=== PATIENT | male | born 1965 | race Caucasian/White ===

== ENCOUNTER 2017-08-31 04:27 | Emergency (ER) | payer OTHER ==
[2017-08-31 04:38] VITALS: TEMP 97.7; BMI 34.4
[2017-08-31] MEDS ORDERED: ATIVAN PO STA (05:27)
--- NOTE | 2017-08-31 05:30 | ED.PDOC ---
General ED Provider: Dr. RPICILA MORFIN Chief Complaint: Behavioral Complaint Stated Complaint: patient states that he feels anxious since quiting smoking. He was recently discharged from [facility] inpatient psych 4 days ago. He also states that his mother and has been grieving her loss. He was recently diagnosed with diabetes and is also not sure if the new medication for diabetes is right. Time Seen by Physician: 05:28 Mode of Arrival: Ambulance Information Source: Patient Primary Care Provider: JUDY LOZANO Nursing and Triage Documentation Reviewed and Agree: Yes Does patient meet sepsis criteria?: No System Inflammatory Response Syndrome: Not Applicable Sepsis Protocol: For patient's 13 years and over: Temp is 96.8 and below OR 101 and greater Pulse >90 BPM Resp >20/minute Acutely Altered Mental Status Are patient's symptoms suggestive of a new infection, such as: -Pneumonia -Skin, Soft Tissue -Endocarditis -UTI -Bone, Joint Infection -Implantable Device -Acute Abdominal Infection -Wound Infection -Meningitis -Blood Stream Catheter Infection -Unknown Review of Systems - Review Of Systems Constitutional: Reports: No symptoms Eyes: Reports: No symptoms Ears, Nose, Mouth, Throat: Reports: No symptoms Respiratory: Reports: No symptoms Cardiac: Reports: No symptoms GI: Reports: No symptoms : Reports: No symptoms Neurological: Reports: Anxiety, Depressed, Emotional problems, Other (insomina ) All Other Systems: Reviewed and Negative Past Medical History - Past Medical History Endocrine: Reports: Dyslipidemia Cardiovascular: Reports: Hypertension Respiratory: Reports: None Hematological: Reports: None Gastrointestinal: Reports: GERD Genitourinary: Reports: None Neuro/Psych: Reports: Anxiety, Depression, Schizophrenia Musculoskeletal: Reports: None Cancer: Reports: None - Surgical History General Surgical History: Reports: Cholecystectomy, Orthopedic - Family History Family History: Reports: Unknown - Social History Smoking Status: Former smoker Hx Substance Use: Yes (ALCOHOL/STREET DRUGS IN PAST) Alcohol Screening: None - Immunizations Tetanus Shot up to Date: No Physical Exam - Physical Exam Appearance: Well-appearing, No pain distress, Well-nourished Eyes: ASAD, EOMI, Conjunctiva clear ENT: Ears normal, Nose normal, Oropharynx normal Respiratory: Airway patent, Breath sounds clear, Breath sounds equal, Respirations nonlabored Cardiovascular: RRR, Pulses normal, No rub, No murmur GI/: Soft, Nontender, No masses, Bowel sounds normal, No Organomegaly Musculoskeletal: Normal strength, ROM intact, No edema, No calf tenderness Skin: Warm, Dry, Normal color Neurological: Alert, Oriented Psychiatric: Anxious, Depressed Re-Evaluation - Re-Evaluation Time of Re-Evaluation: 06:00 Status: Improved (less anxious ) Critical Care Note - Critical Care Note Total Time (mins): 0 Course - Course Orders, Labs, Meds: Orders Category Date Time Status Lorazepam [Ativan] MEDS 08/31/17 05:27 Discontinued 1 mg PO ONCE STA Medications Discontinued Medications Generic Name Dose Route Start Last Admin Trade Name Sherrell PRN Reason Stop Dose Admin Lorazepam 1 mg 08/31/17 05:27 08/31/17 05:31 Ativan PO 08/31/17 05:28 1 mg ONCE STA Administration Vital Signs: Temp Pulse Resp BP Pulse Ox 08/31/17 05:15 167/99 H 08/31/17 04:29 97.7 F 97 H 18 139/103 H 95 Departure - Departure Time of Disposition: 06:20 Disposition: HOME SELF-CARE Discharge Problem: Anxiety about health Instructions: Generalized Anxiety Disorder (ED) Condition: Stable Pt referred to PMD for follow-up: Yes IPMP verified?: No Additional Instructions: continue home medications Follow up with your counsellor in few days continue non use of smoking. Follow diabetic diet. Allergies/Adverse Reactions: Allergies No Known Allergies Allergy (Verified 08/31/17 04:38) Home Medications: Ambulatory Orders Diazepam [Valium] 10 mg PO BID 09/14/12 Furosemide [Lasix Tab] 40 mg PO QDAC 09/14/12 Ibuprofen 800 mg PO BID PRN 09/14/12 Paliperidone [Invega] 6 mg PO BID 09/14/12 Potassium Chloride [K-Dur] 20 meq PO DAILY 09/14/12 Rosuvastatin Calcium [Crestor] 20 mg PO BEDTIME 09/14/12 Clonidine HCl 0.3 mg PO DAILY 06/11/15 Fluvoxamine Maleate 100 mg PO TID 09/21/15 Ergocalciferol (Vitamin D2) [Vitamin D2] 50,000 unit PO DIRECTED 08/31/17 Fenofibrate 160 mg PO BEDTIME 08/31/17 Hydrocodone Bit/Acetaminophen [[place] 10-325] 1 each PO Q4-6H PRN 08/31/17 Metformin HCl 500 mg PO BID 08/31/17 Nicotine 21 mg [Nicoderm 21 mg] 1 patch TD DAILY 08/31/17 Pantoprazole Sodium 40 mg PO DAILY 08/31/17 Propranolol HCl 40 mg PO TID 08/31/17 Quetiapine Fumarate [Seroquel] 600 mg PO BEDTIME 08/31/17
[2017-08-31 06:20] VITALS: BP 167/99
== END 2017-08-31 06:00 | disposition home or self-care (01) ==
LOC: ED 04:27
DX: F41.9 Anxiety disorder, unspecified (principal); E11.9 Type 2 diabetes mellitus without complications; Z79.899 Other long term (current) drug therapy
CPT/HCPCS: 99283

== ENCOUNTER 2018-06-10 07:36 | Outpatient (CLI) ==
[2018-06-10 07:55] VITALS: BMI 32.6
== END 2018-06-10 07:43 | disposition critical access hospital (66) ==
LOC: AMBL 07:36
PROVIDERS: ATTEND Internal Medicine
DX: G47.00 Insomnia, unspecified (principal); R73.9 Hyperglycemia, unspecified; Z91.14 Patient's other noncompliance with medication regimen

== ENCOUNTER 2018-06-10 07:47 | Emergency (ER) ==
[2018-06-10 07:55] VITALS: BP 147/92; TEMP 97; BMI 32.6
--- NOTE | 2018-06-10 08:47 | ED.PDOC ---
General ED Provider: Dr. JUAN CARLOS AGOSTO Chief Complaint: Behavioral Complaint Stated Complaint: med refill anxious about his meds Time Seen by Physician: 08:00 (seen with july) Mode of Arrival: Stretcher Information Source: Patient Exam Limitations: No limitations Primary Care Provider: ORQUIDEA WHALEN Nursing and Triage Documentation Reviewed and Agree: Yes Does patient meet sepsis criteria?: No System Inflammatory Response Syndrome: Not Applicable Sepsis Protocol: For patient's 13 years and over: Temp is 96.8 and below OR 101 and greater Pulse >90 BPM Resp >20/minute Acutely Altered Mental Status Are patient's symptoms suggestive of a new infection, such as: -Pneumonia -Skin, Soft Tissue -Endocarditis -UTI -Bone, Joint Infection -Implantable Device -Acute Abdominal Infection -Wound Infection -Meningitis -Blood Stream Catheter Infection -Unknown Psychological Complaint Exam - Psychiatric Complaint/Exam Patient Complains Of: Present: Other (pt reorts that that his doctor has changed or inbetween doctors out of meds ) Onset/Duration: 8am Symptoms Are: Still present Timing: Intermittent Episodes Lasting: Days Initial Severity: Mild Current Severity: Mild Character: Present: Anxious. Absent: Depressed, Fearful, Angry, Frustrated Aggravating: Reports: Recent stress (was attending a clinic in [facility] and stated he has been dropped by them has appointment next week with [facility] will see his ) Associated Signs And Symptoms: Reports: Sleep disturbance, Appetite change. Denies: Hostile, Confused, Hallucinating, Paranoid behavior Related History: Denies: Suicidal thoughts, Suicidal plan, Suicidal gestures, Homicidal thoughts, Homicidal plan, Homicidal gestures, Prior attempts, Recent stressors Completed Suicide Risk Factors: None Patient In Custody Of Police: No Social Withdrawal Present: No Social Isolation Present: No Prior Suicide Attempt: No Injury From Prior Suicide Attempt: No Related Surgical History: Reports: None Patient Uncooperative For Exam: No Mood: Present: Agitated, Anxious Appearance: Present: Clean Thought Process: Present: Logical Insight: Present: Good Memory: Intact Judgement: Normal Danger To Others: No Differential Diagnoses: Anxiety, Other (med refill) Review of Systems - Review Of Systems Constitutional: Reports: No symptoms Eyes: Reports: No symptoms Ears, Nose, Mouth, Throat: Reports: No symptoms Respiratory: Reports: No symptoms Cardiac: Reports: No symptoms GI: Reports: No symptoms : Reports: No symptoms Musculoskeletal: Reports: No symptoms Skin: Reports: No symptoms Neurological: Reports: Emotional problems (anxiety) Endocrine: Reports: No symptoms Hematologic/Lymphatic: Reports: No symptoms All Other Systems: Reviewed and Negative Past Medical History - Past Medical History Previously Healthy: No Endocrine: Reports: Dyslipidemia Cardiovascular: Reports: Hypertension Respiratory: Reports: None Hematological: Reports: None Gastrointestinal: Reports: GERD Genitourinary: Reports: None Neuro/Psych: Reports: Anxiety, Depression, Schizophrenia Musculoskeletal: Reports: None Cancer: Reports: None - Surgical History General Surgical History: Reports: Cholecystectomy, Orthopedic - Family History Family History: Reports: Unknown - Social History Smoking Status: Former smoker Hx Substance Use: Yes (ALCOHOL/STREET DRUGS IN PAST) Alcohol Screening: None Physical Exam - Physical Exam Appearance: Well-appearing, No pain distress, Well-nourished Eyes: ASAD, EOMI, Conjunctiva clear ENT: Ears normal, Nose normal, Oropharynx normal Respiratory: Airway patent, Breath sounds clear, Breath sounds equal, Respirations nonlabored Cardiovascular: RRR, Pulses normal, No rub, No murmur GI/: Soft, Nontender, No masses, Bowel sounds normal, No Organomegaly Musculoskeletal: Normal strength, ROM intact, No edema, No calf tenderness Skin: Warm, Dry, Normal color Neurological: Sensation intact, Motor intact, Reflexes intact, Cranial nerves intact, Alert, Oriented Psychiatric: Affect appropriate, Mood appropriate Critical Care Note - Critical Care Note Total Time (mins): 0 Course - Course Vital Signs: Temp Pulse Resp BP Pulse Ox 06/10/18 07:47 97 F L 81 20 147/92 H 97 Departure - Departure Time of Disposition: 08:48 Disposition: HOME SELF-CARE Discharge Problem: Anxiety, Medication refill Instructions: Anxiety (ED), Medicine Refill (ED) Condition: Good Pt referred to PMD for follow-up: Yes IPMP verified?: No Additional Instructions: Please call your Family Physician as soon as possible to schedule a follow-up appointment. Allergies/Adverse Reactions: Allergies No Known Allergies Allergy (Verified 06/10/18 07:57) Home Medications: Ambulatory Orders Diazepam [Valium] 10 mg PO BID 09/14/12 Furosemide [Lasix Tab] 40 mg PO QDAC 09/14/12 Ibuprofen 800 mg PO BID PRN 09/14/12 Paliperidone [Invega] 6 mg PO BID 09/14/12 Potassium Chloride [K-Dur] 20 meq PO DAILY 09/14/12 Rosuvastatin Calcium [Crestor] 20 mg PO BEDTIME 09/14/12 Clonidine HCl 0.3 mg PO DAILY 06/11/15 Fluvoxamine Maleate 100 mg PO BID 09/21/15 Fenofibrate 160 mg PO BEDTIME 08/31/17 Metformin HCl 500 mg PO BID 08/31/17 Nicotine 21 mg [Nicoderm 21 mg] 1 patch TD DAILY 08/31/17 Pantoprazole Sodium 40 mg PO DAILY 08/31/17 Propranolol HCl 40 mg PO TID 08/31/17 Quetiapine Fumarate [Seroquel] 800 mg PO BEDTIME 08/31/17 Duloxetine HCl [Cymbalta] 60 mg PO DAILY 06/10/18
== END 2018-06-10 09:00 | disposition home or self-care (01) ==
LOC: ED 07:47
DX: F41.9 Anxiety disorder, unspecified (principal); Z76.0 Encounter for issue of repeat prescription; E78.5 Hyperlipidemia, unspecified; I10 Essential (primary) hypertension; Z79.899 Other long term (current) drug therapy
CPT/HCPCS: 99282

== ENCOUNTER 2018-07-06 12:01 | Outpatient (CLI) | payer OTHER | END 2018-07-06 12:02 | disposition home or self-care (01) | LOC: RHC-LAB 12:01 | PROVIDERS: ATTEND Nurse Practitioner Family | DX: E11.9 Type 2 diabetes mellitus without complications (principal); I10 Essential (primary) hypertension; E78.5 Hyperlipidemia, unspecified; F41.1 Generalized anxiety disorder; Z79.899 Other long term (current) drug therapy; Z12.5 Encounter for screening for malignant neoplasm of prostate; Z72.0 Tobacco use | CPT/HCPCS: 36415; 80053; 80061; 80306; 82043; 83036; 84443; 85025 ==